=== PATIENT | male | born 1990 | race Caucasian/White ===

== ENCOUNTER 2024-09-09 08:37 | Emergency (ER) | payer BC, SELFPAY ==
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
[2024-09-09 08:50] VITALS: BP 128/80; PULSE 112; RESP 16; TEMP 36.8; O2SAT 96
[2024-09-09 09:06] LABS: EDCOVIDSCREEN Negative (Negative); EDINFLUASCREEN Negative (Negative); EDINFLUBSCREEN Negative (Negative)
== END 2024-09-09 10:00 | disposition short-term general hospital (02) ==
PROVIDERS: Emergency Provider Nurse Practitioner Family
DX: R50.9 Fever, unspecified (principal); Z20.822 Contact with and (suspected) exposure to COVID-19
CPT/HCPCS: 87426; 87804; 99212; G0463

== ENCOUNTER 2024-09-09 11:12 | Emergency (ER) | payer BC, SELFPAY ==
--- NOTE | ~2024-09-09 | XR_ITS ---
Clinical Indication: Fever PA and lateral views of the chest: Comparison: 12/17/2005 Findings: The lungs are clear, without evidence of focal consolidation or pleural effusion. Cardiome diastinal silhouette is within normal limits. Bones and soft tissues are unremarkable. Impression: Normal chest. Reviewed, dictated and finalized at [facility]. Impression: Normal chest.
[2024-09-09 11:13] VITALS: BP 148/80; PULSE 103; RESP 18; TEMP 36.7; O2SAT 99
[2024-09-09 11:32] VITALS: O2SAT 99
[2024-09-09 13:12] LABS: Basophils Absolute Auto 0.1 K/mm3 (0.0-0.1); Eosinophils Absolute Auto 0.1 K/mm3 (0-0.3); Hematocrit 45.4 % (42.0-52.0); Immature Granulocyte Absolute 0.03 K/mm3 (0.00-0.031); Immature Granulocyte Percent A 0.5 % (0-0.5); Lymphocytes Absolute Auto 2.99 K/mm3 (0.9-3.2); Lymphocytes Percent Auto 50.2 % (18.3-44.2); Mean Corpuscular Hemoglobin 28.4 pg (26-34); Mean Platelet Volume 9.5 fl (7.4-10.4); Monocytes Absolute Auto 0.3 K/mm3 (0.1-0.6); Monocytes Percent Auto 5.2 % (2.6-8.5); Neutrophils Absolute Auto 2.5 K/mm3 (1.3-6.7); Neutrophils Percent Auto 42.1 % (45.5-73.1); Platelet Count Result 141 k/mm3 (150-375); Red Blood Count 5.28 M/mm3 (4.6-6.20); Red Cell Distribution Width 12.3 % (11.5-14.5)
[2024-09-09 13:21] LABS: Alanine Aminotransferase 353 U/L (6-50); Alkaline Phosphatase 233 U/L (38-126); Anion Gap 10 mmol/L (4-12); Aspartate Amino Transferase 146 U/L (17-59); Bilirubin,Total 0.9 mg/dL (0.2-1.3); Blood Urea Nitrogen 12 mg/dL (9-20); Carbon Dioxide 22 mmol/L (22-30); Chloride 105 mmol/L (98-107); Estimated CRCL calculation 118 ml/min; Estimated Glomerular Filt Rate > 60; Glucose 135 mg/dL (65-110); Potassium 3.7 mmol/L (3.4-5.0); Sodium 137 mmol/L (137-145); Total Protein 7.3 g/dL (6.3-8.2)
[2024-09-09] MEDS: SODIUM CHLORIDE 0.9% IV 1,000 ML 999 ML IV CONT (13:22)
[2024-09-09 13:32] LABS: Add Urine Microscopic? YES; Appearance Urine Clear (Clear); Bacteria Urine None Seen /hpf; Bilirubin Urine 1+ (Negative); Blood Urine Negative (Negative); Color Urine Dark Yellow (Yellow); Glucose Urine UA Negative (Negative); Ketones Urine Trace mg/dL (Negative); Leukocyte Esterase Ur Negative LEU/UL (Negative); Nitrate Urine Negative (Negative); Non Pathogenic Casts 0-2; Protein Urine 1+ mg/dL (Negative); RBC Urine 0-2 /hpf (0-2); Specific Grav Ur 1.027 (1.001-1.035); Squamous Epithelial Cell Urine None Seen /hpf (Few); WBC Urine 0-5 /hpf (0-3); pH Urine 5.5 (5.0-9.0)
[2024-09-09 13:36] LABS: Atypical Lymphocytes Present; Platelet Estimate Adequate (Adequate); Schistocytes None Seen
[2024-09-09 13:48] LABS: Influenza A QL RT-PCR Negative (Negative); Influenza B QL RT-PCR Negative (Negative); RSV RNA, RT-PCR Negative (Negative); SARS-CoV-2 RNA PCR Negative (Negative)
[2024-09-09 13:50] VITALS: BP 128/81; PULSE 95; RESP 18; TEMP 36.4; O2SAT 97
--- NOTE | 2024-09-09 13:50 | ED.GENADULT ---
HPI - General Adult General Chief complaint: Fever Stated complaint: fever x 8 days Time Seen by Provider: 09/09/24 12:31 History of Present Illness HPI narrative: Patient is a 34-year-old male who presents ER for evaluation of fever. Ongoing for 8 days. It goes away with ibuprofen but then returns. No runny nose or sore throat or productive cough. No body aches. No abdominal discomfort. He is without diarrhea. No urinary symptoms. He has no known sick contacts. He does not have a PCP. He was seen at an urgent care in [facility] for COVID and then sent here for further evaluation. No weight loss. Related Data Home Medications ?Medication ?Instructions ?Recorded ?Confirmed ?Last Taken ?Type clindamycin HCl 300 mg capsule 300 mg PO BID 09/09/24 Unknown History Allergies Allergy/AdvReac Type Severity Reaction Status Date / Time Penicillins Allergy Mild Abdominal Verified 09/09/24 11:28 Pain Review of Systems Review of Systems: All systems reviewed & are unremarkable except as noted in HPI and below Constitutional: Constitutional: Reports no additional constitutional complaints ENT: Reports system reviewed and no additional complaints, except as documented Cardiovascular: Cardiovascular: Reports no additional cardiovascular complaints Respiratory: Respiratory: Reports no additional respiratory complaints Gastrointestinal: Gastrointestinal: Reports no additional gastrointestinal complaints Genitourinary: Genitourinary: Reports no additional male genitourinary complaints [facility] Past Medical History Medical History (Updated 09/09/24 @ 18:41 by Rodrick Oliver MD) Healthy adult male Surgical History Surgical History (Updated 09/09/24 @ 18:41 by Rodrick Oliver MD) No history of previous surgery Exam Narrative: GENERAL: Well-appearing, well-nourished, and in no acute distress. HEAD: Normocephalic, atraumatic. ENT: Mucous membranes moist. Normal appearing posterior oropharynx. NECK: Supple. CHEST: Clear to auscultation. No respiratory distress. HEART: Regular rate and rhythm. Normal peripheral pulses. ABDOMEN: Soft, nontender, nondistended. EXTREMITIES: Normal range of motion. No edema. SKIN: Warm, dry, no rash. NEURO: Alert and oriented x3. PSYCH: Normal mood and affect. Course Course Emergency Course: Discussed lab results. Transaminitis likely from viral cause. He does not have a PCP. will try to have him follow up with her PCP but also given name of the on-call PCP. No abdominal pain, declines ultrasound. Vital Signs Vital signs: Vital Signs Temperature 98.1 F 09/09/24 11:13 Pulse Rate 103 H 09/09/24 11:13 Respiratory Rate 18 09/09/24 11:13 Blood Pressure 148/80 H 09/09/24 11:13 Pulse Oximetry 99 09/09/24 11:13 Oxygen Delivery Room Air 09/09/24 11:13 Temperature 97.6 F 09/09/24 13:50 Pulse Rate 94 09/09/24 15:35 Respiratory Rate 18 09/09/24 15:35 Blood Pressure 127/82 09/09/24 15:35 Pulse Oximetry 99 09/09/24 15:35 Oxygen Delivery Room Air 09/09/24 11:13 Medical Decision Making Vital Signs Vital Signs: Vital Signs Temperature 98.1 F 09/09/24 11:13 Pulse Rate 103 H 09/09/24 11:13 Respiratory Rate 18 09/09/24 11:13 Blood Pressure 148/80 H 09/09/24 11:13 Pulse Oximetry 99 09/09/24 11:13 Oxygen Delivery Room Air 09/09/24 11:13 Temperature 97.6 F 09/09/24 13:50 Pulse Rate 94 09/09/24 15:35 Respiratory Rate 18 09/09/24 15:35 Blood Pressure 127/82 09/09/24 15:35 Pulse Oximetry 99 09/09/24 15:35 Oxygen Delivery Room Air 09/09/24 11:13 Lab Data 09/09/24 13:07 09/09/24 13:07 Labs: Lab Results 09/09/24 09/09/24 09/09/24 Range/Units 13:06 13:07 13:23 WBC 6.0 (4.5-10.0) K/mm3 RBC 5.28 (4.6-6.20) M/mm3 Hgb 15.0 (14.0-18.0) g/dL Hct 45.4 (42.0-52.0) % MCV 86.0 (80-100) fl MCH 28.4 (26-34) pg MCHC 33.0 (32-36) g/dl RDW 12.3 (11.5-14.5) % Plt Count 141 L (150-375) k/mm3 MPV 9.5 (7.4-10.4) fl Immature Gran % (Auto) 0.5 (0-0.5) % Neut % (Auto) 42.1 L (45.5-73.1) % Lymph % (Auto) 50.2 H (18.3-44.2) % [place] % (Auto) 5.2 (2.6-8.5) % Eos % (Auto) 1.0 (0-4.4) % Baso % (Auto) 1.0 (0.2-1.2) % Lymph # (Auto) 2.99 (0.9-3.2) K/mm3 [place] # (Auto) 0.3 (0.1-0.6) K/mm3 Eos # (Auto) 0.1 (0-0.3) K/mm3 Baso # (Auto) 0.1 (0.0-0.1) K/mm3 Abs Immat Gran (auto) 0.03 (0.00-0.031) K/mm3 Absolute Neuts (auto) 2.5 (1.3-6.7) K/mm3 Absolute Nucleated RBC 0.000 (0.0-0.012) K/mm3 Band Neutrophils % Not Reportable Nucleated RBC % 0.0 (0.0-0.2) % Atypical Lymphocytes Present Platelet Estimate Adequate (Adequate) Schistocytes None seen Sodium 137 (137-145) mmol/L Potassium 3.7 (3.4-5.0) mmol/L Chloride 105 (98-107) mmol/L Carbon Dioxide 22 (22-30) mmol/L Anion Gap 10 (4-12) mmol/L BUN 12 (9-20) mg/dL Creatinine 1.00 (0.7-1.3) mg/dL Estim Creat Clear Calc 118 ml/min Estimated GFR > 60 (59 - ) Glucose 135 H (65-110) mg/dL Calcium 9.0 (8.4-10.2) mg/dL Total Bilirubin 0.9 (0.2-1.3) mg/dL AST 146 H (17-59) U/L ALT 353 H (6-50) U/L Alkaline Phosphatase 233 H (38-126) U/L Total Protein 7.3 (6.3-8.2) g/dL Albumin 4.0 (3.5-5.1) g/dL Urine Color Dark yellow (Yellow) Urine Appearance Clear (Clear) Urine pH 5.5 (5.0-9.0) Ur Specific [place] 1.027 (1.001-1.035) Urine Protein 1+ H (Negative) mg/dL Urine Glucose (UA) Negative (Negative) mg/dL Urine Ketones Trace H (Negative) mg/dL Ur Blood (Man) Negative (Negative) Urine Nitrate Negative (Negative) Urine Bilirubin 1+ H (Negative) Urine Urobilinogen 1.0 (<2.0) mg/dL Leukocyte Esterase Rfl Negative (Negative) VERNA/UL Urine RBC 0-2 (0-2) /hpf Urine WBC 0-5 (0-3) /hpf Ur Squamous Epith Cells None seen (Few) /hpf Urine Bacteria None seen /hpf Urine Casts 0-2 Hepatitis A IgM Ab Negative (Negative) Hep Bs Antigen Negative (Negative) Hep B Core IgM Ab Negative (Negative) Hepatitis C Ab Screen Negative (Negative) Monoscreen Negative (Negative) Influenza A (RT-PCR) Negative (Negative) Influenza B (RT-PCR) Negative (Negative) RSV (RT-PCR) Negative (Negative) SARS-CoV-2 RNA (RT-PCR) Negative (Negative) Discharge Plan Discharge Clinical Impression: Transaminitis, Acute viral syndrome Patient Disposition: Home Condition: Stable Instructions: Viral Syndrome (ED) Additional Instructions: You have elevated liver enzymes that are likely related to a viral syndrome. It is recommended you follow-up with the primary care doctor to ensure that these go back to normal. Continue to take ibuprofen as needed for fever. Return the ER if your eyes turning yellow, you have severe abdominal pain, you develop chest pain, or you have additional concerns. Patient Language: Thai Prescriptions: No Action clindamycin HCl 300 mg capsule 300 mg PO BID Follow-up/Referrals: Panfilo Velázquez MD [Physician] - 1 Week PHYSICIAN,PIZZA CHEF [Primary Care Provider] -
[2024-09-09 13:54] LABS: Monoscreen Negative (Negative); Negative Monotest Control Negative (Negative); Positive Monotest Control Positive (Positive)
[2024-09-09 14:17] LABS: Hepatitis B Surface Antigen Negative (Negative)
[2024-09-09 14:23] LABS: HAV RESULT Negative (Negative); Hepatitis B Core IgM Result Negative (Negative)
[2024-09-09 14:35] LABS: Hepatitis C Virus Antibody Negative (Negative)
[2024-09-09 15:35] VITALS: BP 127/82; PULSE 94; RESP 18; O2SAT 99
== END 2024-09-09 15:36 | disposition home or self-care (01) ==
PROVIDERS: Emergency Provider Emergency Medicine
DX: R74.01 Elevation of levels of liver transaminase levels (principal); B34.9 Viral infection, unspecified; Z20.822 Contact with and (suspected) exposure to COVID-19
CPT/HCPCS: 36415; 71046; 80053; 80074; 81001; 85025; 86308; 87637; 96360; 99283; J7030